=== PATIENT | male | born 1955 | race Caucasian/White ===

== ENCOUNTER 2016-10-10 19:08 | Emergency (ER) | payer BC ==
[2016-10-10 19:29] LABS: BASOPHILS 0.6 % (0-2); EOSINOPHILS 4.2 % (0-7); HEMATOCRIT 43.9 % (42.0-54.0); HEMOGLOBIN 15.1 g/dL (13.5-17.5); IMMATURE GRANULOCYTES 0.5 % (0-5); MCH 33.8 pg (26.0-34.0); MCHC 34.4 g/dL (31.0-37.0); MCV 98.2 fL (80.0-100.0); MEAN PLATELET VOLUME 10.7 fL (7.4-10.4); MONOCYTES 7.3 % (2-11); NEUTROPHILS 66.4 % (40-80); PLATELET COUNT 243 10x3/uL (130-400); RBC 4.47 10x6/uL (4.20-6.10); WBC 10.6 10x3/uL (4.8-10.8)
[2016-10-10 19:44] LABS: ALBUMIN 3.8 g/dL (3.4-5.0); ANION GAP 14.7 mmol/L (8-16); BILIRUBIN - TOTAL 0.41 mg/dL (0.2-1.3); CALCIUM 8.6 mg/dL (8.5-10.1); CREATININE - SERUM 1.4 mg/dL (0.6-1.3); POTASSIUM - SERUM 3.7 mmol/L (3.5-5.1); PROTEIN - SERUM 7.2 g/dL (6.4-8.2)
== END 2016-10-10 21:22 | disposition home or self-care (01) ==
LOC: D.ER 19:08
PROVIDERS: Emergency Medicine
DX: R56.9 Unspecified convulsions (principal); E11.9 Type 2 diabetes mellitus without complications